=== PATIENT | female | born 1990 | race American Indian/Alaskan Native ===

== ENCOUNTER 2016-08-21 01:27 | Outpatient (CLI) | payer MEDICAID ==
[2016-08-21 02:08] VITALS: BP 123/76
--- NOTE | 2016-08-21 10:04 | Ultrasound Report ---
OB LIMITED History: well-being. Technique: Transabdominal ultrasound with Doppler interrogation. Gestation: Single Position: Cephalic Amniotic Fluid: Normal AGUEDA = 10.3 cm Placenta: Anterior Placental Grade: 1 Heart Rate: 158 BPM
--- NOTE | 2016-08-21 10:05 | Ultrasound Report ---
BIOPHYSICAL PROFILE: History: well-being. Technique: Transabdominal ultrasound with Doppler interrogation. 2 - breathing movements 2 - movements 2 - posture and tone 2 - Qualitative amniotic fluid volume 8 - TOTAL SCORE OF POSSIBLE 8 Heart Rate (bpm) 158
== END 2016-08-21 03:41 | disposition home or self-care (01) ==
LOC: TRG 01:27
PROVIDERS: ATTEND Obstetrics & Gynecology
DX: O47.1 False labor at or after 37 completed weeks of gestation (principal); Z3A.39 39 weeks gestation of pregnancy
CPT/HCPCS: 76815; 76819

== ENCOUNTER 2016-08-23 04:32 | Inpatient (IN) | payer MEDICAID ==
[2016-08-23] MEDS ORDERED: LACTATED RINGERS 1,000 ML ONE (05:12)
[2016-08-23 07:55] LABS: Basophils % (Auto) 0.8 % (0.0-1.8); Eosinophils % (Auto) 1.7 % (0.0-4.3); Hematocrit 32.6 % (30.3-42.9); Hemoglobin 10.8 gm/dl (10.1-14.3); Mean Corpuscular HGB Conc 33 % (30-34); Mean Corpuscular Hemoglobin 28 pg (28-32); Mean Corpuscular Volume 83 fl (79-97); Platelet Count 218 K/mm3 (140-440); Red Blood Count 3.91 M/mm3 (3.65-5.03); Red Cell Distribution Width 13.7 % (13.2-15.2); White Blood Count 10.8 K/mm3 (4.5-11.0)
[2016-08-23] MEDS ORDERED: POLYCILLIN/NS 2 GM/100 ML 100 ML IV ONE (08:30)
--- NOTE | 2016-08-23 08:36 | History and Physical Report ---
History of Present Illness Date of examination: 08/23/16 Date of admission: 08/23/16 08:25 Chief complaint: C/O contractions History of present illness: 25 y/o with care at [facility] since 11 weeks. GBS +, no medical problems. Presents in active labor. Past History Past Medical History: no pertinent history Past Surgical History: other (hernia repair) BILINGUAL PATIENT SUPPORT CASEWORKER History: chlamydia, gonorrhea Family/Genetic History: none - Obstetrical History Expected Date of Delivery: 08/26/16 Actual Gestation: 39 Week(s) 4 Day(s) : 4 Para: 2 Spontaneous Abortions: 1 Number of Living Children: 2 Medications and Allergies Allergies Allergy/AdvReac Type Severity Reaction Status Date / Time No Known Allergies Allergy Verified 08/21/16 02:05 Active Meds: Active Medications Lactated Ringer's (Lactated Ringers) 1,000 mls @ 125 mls/hr IV DIRECT GABRIEL Ampicillin Sodium (Polycillin/Ns 2 Gm/100 Ml) 100 mls @ 100 mls/hr IV ONCE ONE PRN Reason: Protocol Stop: 08/23/16 09:29 Ampicillin Sodium (Polycillin/Ns 1 Gm/50 Ml) 50 mls @ 100 mls/hr IV Q4H GABRIEL PRN Reason: Protocol Influenza Virus Vaccine Quadrival (Fluarix Quad 8615-6029(36 Mos+)) 60 mcg IM .ONCE ONE Stop: 08/24/16 12:01 Review of Systems All systems: negative - Vital Signs Vital signs: Vital Signs Temp Pulse Resp BP 98.2 F 84 20 130/74 08/23/16 04:40 08/23/16 04:40 08/23/16 04:40 08/23/16 04:40 Temp Pulse Resp BP Pulse Ox 98.2 F 86 20 118/71 97 08/23/16 04:40 08/23/16 07:20 08/23/16 04:40 08/23/16 07:20 08/23/16 05:52 - Physical Exam Breasts: Positive: deferred Cardiovascular: Regular rate Lungs: Positive: Clear to auscultation Abdomen: Positive: soft Vulva: both: normal Vagina: Positive: normal moisture Uterus: Positive: enlarged Adnexa: both: normal Anus/Rectum: Positive: normal perianal skin Deep Tendon Reflex Grade: Normal +2 - Obstetrical FHR: category 1 FHR comments: CAT I 145- 155 Cervical Dilatation: 4 (nurse exam) Cervical Effacement Percentage: 70 station: -1 Uterine Contraction Pattern: Regular Uterine Contraction Intensity: Moderate Results Result Diagrams: 08/23/16 07:40 Abnormal lab results 08/23/16 Range/Units 07:40 Menard % (Auto) 9.0 H (0.0-7.3) % Menard # 1.0 H (0.0-0.8) K/mm3 All other labs normal. Assessment and Plan A: 39. 4 weeks in active labor P: Expect Epidural
[2016-08-23] MEDS: LACTATED RINGERS 1,000 ML IV SCH ×2 (08:59→09:57)
[2016-08-23] MEDS ORDERED: LACTATED RINGERS 1,000 ML IV SCH (09:00)
[2016-08-23] MEDS ORDERED: SUBLIMAZE IV PRN (09:00)
[2016-08-23] MEDS ORDERED: ePHEDrine SULFATE IV PRN (10:00)
[2016-08-23] MEDS ORDERED: PITOCin/NS 30 UNIT/500ML 500 ML IV SCH (10:00)
[2016-08-23] MEDS ORDERED: BRETHINE SUB-Q PRN (10:00)
[2016-08-23] MEDS ORDERED: PITOCin/NS 20 UNIT/1000ML DRIP 1,000 ML IV SCH (10:00)
[2016-08-23] MEDS ORDERED: BRETHINE IVP PRN (10:00)
[2016-08-23] MEDS ORDERED: MINERAL OIL PO PRN (10:00)
--- NOTE | 2016-08-23 10:27 | Anesthesia Consultation ---
Anesthesia Consult and Med Hx Date of service: 08/23/16 - Airway Anesthetic Teeth Evaluation: Good ROM Head & Neck: Adequate Mental/Hyoid Distance: Adequate Mallampati Class: Class II Intubation Access Assessment: Probably Good - Pre-Operative Health Status ASA Pre-Surgery Classification: ASA2 Proposed Anesthetic Plan: Epidural - Pulmonary Hx Asthma: No COPD: No Hx Pneumonia: No - Cardiovascular System Hx Hypertension: No - Central Nervous System Hx Seizures: No Hx Psychiatric Problems: No - Endocrine Hx Renal Disease: No Hx End Stage Renal Disease: No Hx Hypothyroidism: No Hx Hyperthyroidism: No - Hematic Hx Anemia: No Hx Sickle Cell Disease: No - Other Systems Hx Alcohol Use: No
[2016-08-23] MEDS ORDERED: NARCAN 2 MG/2 ML IV PRN (10:28)
[2016-08-23] MEDS ORDERED: fentaNYL-BUPIV 2 MCG/ML-0.125% 100 ML EPIDURAL SCH (11:00)
[2016-08-23] MEDS: PITOCin/NS 30 UNIT/500ML 500 ML IV SCH ×3 (12:55→14:03)
[2016-08-23] MEDS: POLYCILLIN/NS 1 GM/50 ML 50 ML IV SCH ×2 (12:56→16:37)
--- NOTE | 2016-08-23 14:07 | Event Note ---
Date: 08/23/16 S: Feeling ok., epidural working O: VE /-1, arom clear fluid, CAT I tracing, Pit increased to 8mu A: Active labor with AROM P: Expect
--- NOTE | 2016-08-23 17:14 | Procedure Note ---
OB Delivery Note - Delivery Date of Delivery: 08/23/16 Surgeon: MICAELA ROY Estimated blood loss: 100cc - Vaginal Delivery position: OA Intrapartum events: none Delivery induction: none Delivery augmentation: rupture of membranes, pitocin Delivery monitor: external FHT, external uterine Route of delivery: Delivery placenta: spontaneous Delivery cord: 3 umbilical vessels Episiotomy: none Delivery laceration: other (bilateral labial laceration repaired 3-0 vicryl) Delivery repair: vicryl Anesthesia: epidural Delivery comments: of a viable male 7# 1.0 on 08/23/2016 @ 1856 over an intact perineum. Placenta delivered 3VCI. Apgars 8/9. Bilateral Labial lac noted and repaired with 3-0 vicryl. FF @ U-2 lochia small. - A at 1 minute: 8 at 5 minutes: 9 Infant Gender: Male (7# 1oz)
[2016-08-23] MEDS ORDERED: PHENERGAN PO PRN (17:15)
[2016-08-23] MEDS ORDERED: LANSINOH TP PRN (17:15)
[2016-08-23] MEDS ORDERED: BENADRYL PO PRN (17:15)
[2016-08-23] MEDS ORDERED: TYLENOL PO PRN (17:15)
[2016-08-23] MEDS ORDERED: SODIUM CHLORIDE FLUSH SYRINGE 10 ML IV SCH (18:00)
[2016-08-23] MEDS: MOTRIN PO SCH (20:35)
[2016-08-24] MEDS: MOTRIN PO SCH ×4 (00:19→18:40)
[2016-08-24 06:32] LABS: Hematocrit 34.2 % (30.3-42.9); Hemoglobin 10.9 gm/dl (10.1-14.3)
--- NOTE | 2016-08-24 09:49 | Progress Note ---
Assessment and Plan A: PPD#1 s/p Stable P: Routine PP care Discharge home am PP exam in 6 weeks Undecided on contraception Subjective - Subjective Date of service: 08/24/16 Principal diagnosis: Interval history: See delivery note Patient reports: appetite normal, voiding normally, pain well controlled, flatus , ambulating normally [place]: doing well, nursing well Objective - Vital Signs Latest vital signs: Vital Signs Temp Pulse Pulse Pulse Resp BP BP 08/24/16 08:00 98.1 F 64 18 123/66 08/24/16 00:25 98.5 F 69 18 115/54 08/23/16 20:00 99.6 F 74 18 124/66 08/23/16 19:31 85 125/68 08/23/16 19:15 76 116/56 08/23/16 19:01 86 118/51 08/23/16 18:30 85 85 18 111/61 111/61 08/23/16 18:15 86 79/54 08/23/16 18:00 83 83 18 120/63 120/63 08/23/16 17:45 74 74 18 115/64 115/64 08/23/16 17:30 72 72 18 117/57 117/57 08/23/16 17:15 98 H 98 H 18 121/59 121/59 08/23/16 17:12 83 08/23/16 17:09 84 120/62 08/23/16 17:07 87 08/23/16 17:00 99.4 F 86 86 18 120/61 120/61 08/23/16 16:47 101 H 130/80 08/23/16 16:46 100 H 08/23/16 16:41 92 H 08/23/16 16:36 91 H 08/23/16 16:31 74 08/23/16 16:30 94 H 130/75 08/23/16 16:26 97 H 08/23/16 16:21 81 08/23/16 16:16 77 121/73 08/23/16 16:11 75 08/23/16 16:06 79 08/23/16 16:01 78 124/74 08/23/16 15:56 75 08/23/16 15:51 75 08/23/16 15:46 74 08/23/16 15:45 74 122/75 08/23/16 15:41 74 08/23/16 15:36 74 08/23/16 15:32 72 121/75 08/23/16 15:31 76 08/23/16 15:26 74 08/23/16 15:21 79 08/23/16 15:16 74 120/77 08/23/16 15:11 74 08/23/16 15:06 75 08/23/16 15:01 75 08/23/16 15:00 76 120/78 08/23/16 14:56 74 08/23/16 14:51 74 08/23/16 14:47 76 119/76 08/23/16 14:46 74 08/23/16 14:41 76 08/23/16 14:36 77 08/23/16 14:31 75 122/73 08/23/16 14:26 76 08/23/16 14:21 85 08/23/16 14:16 78 08/23/16 14:15 76 121/78 08/23/16 14:11 78 08/23/16 14:06 79 08/23/16 14:01 87 122/76 08/23/16 13:56 93 H 08/23/16 13:51 77 08/23/16 13:46 76 119/70 08/23/16 13:41 76 08/23/16 13:36 78 08/23/16 13:31 81 08/23/16 13:30 77 114/69 08/23/16 13:26 76 08/23/16 13:21 92 H 08/23/16 13:16 92 H 123/70 08/23/16 13:11 85 08/23/16 13:06 78 08/23/16 13:01 77 08/23/16 13:00 77 114/67 08/23/16 12:56 89 08/23/16 12:51 76 08/23/16 12:49 75 116/71 08/23/16 12:46 74 08/23/16 12:41 81 08/23/16 12:36 85 08/23/16 12:34 75 118/68 08/23/16 12:31 75 08/23/16 12:26 73 08/23/16 12:21 73 08/23/16 12:19 75 119/67 08/23/16 12:16 79 08/23/16 12:11 83 08/23/16 12:06 80 08/23/16 12:04 72 110/63 08/23/16 12:01 73 08/23/16 11:56 71 08/23/16 11:51 72 08/23/16 11:46 73 08/23/16 11:44 83 114/68 08/23/16 11:41 74 08/23/16 11:40 71 18 111/64 08/23/16 11:36 70 08/23/16 11:34 76 110/62 08/23/16 11:31 77 08/23/16 11:29 70 113/65 08/23/16 11:26 75 08/23/16 11:24 71 113/65 08/23/16 11:21 71 113/65 08/23/16 11:16 69 113/66 08/23/16 11:11 69 08/23/16 11:09 70 114/63 08/23/16 11:06 78 08/23/16 11:04 78 115/66 08/23/16 11:01 84 08/23/16 10:59 70 111/59 08/23/16 10:57 77 112/58 08/23/16 10:56 75 08/23/16 10:55 72 106/59 08/23/16 10:53 75 108/58 08/23/16 10:51 74 108/60 08/23/16 10:49 70 112/66 08/23/16 10:47 71 118/68 08/23/16 10:46 76 08/23/16 10:41 73 08/23/16 10:38 67 08/23/16 10:36 97 H 08/23/16 10:34 90 114/68 08/23/16 10:31 96 H 08/23/16 10:27 98.5 F 72 18 115/67 08/23/16 10:26 69 115/67 08/23/16 10:21 69 08/23/16 10:16 69 08/23/16 10:11 93 H 08/23/16 10:06 70 08/23/16 10:01 69 08/23/16 09:59 74 08/23/16 09:56 80 08/23/16 09:51 80 Pulse Ox 08/24/16 08:00 08/24/16 00:25 08/23/16 20:00 08/23/16 19:31 08/23/16 19:15 08/23/16 19:01 08/23/16 18:30 08/23/16 18:15 08/23/16 18:00 08/23/16 17:45 08/23/16 17:30 08/23/16 17:15 08/23/16 17:12 99 08/23/16 17:09 08/23/16 17:07 100 08/23/16 17:00 08/23/16 16:47 08/23/16 16:46 100 17 16:41 100 17 16:36 100 17 16:31 100 17 16:30 08/23/16 16:26 100 08/23/16 16:21 100 08/23/16 16:16 100 17 16:11 100 08/23/16 16:06 100 17 16:01 99 17 15:56 100 17 15:51 99 17 15:46 100 17 15:45 17 15:41 100 17 15:36 100 17 15:32 08/23/16 15:31 100 17 15:26 99 17 15:21 100 17 15:16 100 17 15:11 100 08/23/16 15:06 100 17 15:01 100 08/23/16 15:00 08/23/16 14:56 100 08/23/16 14:51 99 08/23/16 14:47 08/23/16 14:46 100 08/23/16 14:41 99 08/23/16 14:36 100 08/23/16 14:31 99 08/23/16 14:26 100 08/23/16 14:21 100 08/23/16 14:16 99 08/23/16 14:15 08/23/16 14:11 100 08/23/16 14:06 100 08/23/16 14:01 100 08/23/16 13:56 100 08/23/16 13:51 100 08/23/16 13:46 100 08/23/16 13:41 100 08/23/16 13:36 100 08/23/16 13:31 100 08/23/16 13:30 08/23/16 13:26 100 08/23/16 13:21 100 08/23/16 13:16 99 08/23/16 13:11 100 08/23/16 13:06 100 08/23/16 13:01 100 08/23/16 13:00 08/23/16 12:56 100 08/23/16 12:51 100 08/23/16 12:49 08/23/16 12:46 100 08/23/16 12:41 100 08/23/16 12:36 100 08/23/16 12:34 08/23/16 12:31 100 08/23/16 12:26 100 08/23/16 12:21 99 08/23/16 12:19 08/23/16 12:16 98 08/23/16 12:11 98 08/23/16 12:06 98 08/23/16 12:04 08/23/16 12:01 99 08/23/16 11:56 98 08/23/16 11:51 100 08/23/16 11:46 99 08/23/16 11:44 08/23/16 11:41 100 08/23/16 11:40 08/23/16 11:36 99 08/23/16 11:34 08/23/16 11:31 99 08/23/16 11:29 08/23/16 11:26 99 08/23/16 11:24 08/23/16 11:21 100 08/23/16 11:16 100 08/23/16 11:11 99 08/23/16 11:09 08/23/16 11:06 100 08/23/16 11:04 08/23/16 11:01 96 08/23/16 10:59 08/23/16 10:57 08/23/16 10:56 98 08/23/16 10:55 08/23/16 10:53 08/23/16 10:51 99 08/23/16 10:49 08/23/16 10:47 08/23/16 10:46 98 08/23/16 10:41 100 08/23/16 10:38 86 08/23/16 10:36 100 08/23/16 10:34 08/23/16 10:31 99 08/23/16 10:27 100 08/23/16 10:26 100 08/23/16 10:21 99 08/23/16 10:16 97 08/23/16 10:11 97 08/23/16 10:06 96 08/23/16 10:01 96 08/23/16 09:59 92 08/23/16 09:56 98 08/23/16 09:51 98 Intake and Output 08/23/16 08/24/16 08/24/16 22:59 06:59 14:59 Intake Total 1100 Output Total 500 Balance 1100 -500 Intake: IV 1100 Lactated Ringers 1,000 ml 600 @ 125 mls/hr IV DIRECT [facility] Rx#:[id number] PITOCin/NS 30 UNIT/500ML 500 500 ML @ 1 MILLIUNITS/MIN 1 mls/hr IV TITR GABRIEL Rx# :[id number] Output: Urine 500 Void 500 Other: Total, Output Amount 500 Estimated Blood Loss 100 - Exam Breasts: Present: normal Lungs: Present: Normal air movement Vulva: both: normal (scant rubra lochia, no clots), laceration/episiotomy (well approximated) Uterus: Present: firm, fundal height below umbilicus (-1) Deep Tendon Reflex Grade: Normal +2
--- NOTE | 2016-08-24 09:51 | Discharge Summary ---
Providers - Providers Date of Admission: 08/23/16 08:25 Date of discharge: 08/25/16 Attending physician: TRUNG RIVERS MD Primary care physician: TRUNG RIVERS MD Hospitalization Reason for admission: active labor, IUP at term Delivery: Procedure details: see delivery note Episiotomy: none Laceration: other (R labial) Other procedures: none complications: none Discharge diagnosis: IUP at term delivered baby: male Condition at discharge: Good Disposition: DISCHARGED TO HOME OR SELFCARE Plan - Provider Discharge Summary Activity: routine, no sex for 6 weeks, no heavy lifting 4 weeks, no strenuous exercise Diet: routine Instructions: routine Additional instructions: [] Smoking cessation referral if applicable(refer to patient education folder for contact #) [] Refer to [facility] Booklet Call your doctor immediately for: * Fever > 100.5 * Heavy vaginal bleeding ( >1 pad per hour) * Severe persistent headache * Shortness of breath * Reddened, hot, painful area to leg or breast * Drainage or odor from incision. * Keep incision clean and dry at all times and follow doctor's instructions regarding bathing/showering - Follow up plan Follow up: ROYER NICHOLE CNM [Advanced Practice Nurse] - 6 Weeks
--- NOTE | 2016-08-24 10:09 | Progress Note ---
Subjective Date of service: 08/24/16 Principal diagnosis: Interval history: 1st day after normal vaginal delivery. Patient is in the bed, relatively comfortable. Pain is mostly controlled with pain meds. Epidural catheter has been removed earlier. Ambulated normally. No residual neurological deficit. No anesthesia complications Objective - Constitutional Vitals: Vital Signs - 12hr 08/24/16 08/24/16 00:25 08:00 Temperature 98.5 F 98.1 F Pulse Rate [ 69 64 From Monitor] Respiratory 18 18 Rate Blood Pressure 115/54 123/66 [Right Arm] - Labs CBC & Chem 7: 08/24/16 05:58
[2016-08-24] MEDS ORDERED: FLUARIX QUAD 2016-2017(36 MOS+) IM ONE (12:00)
[2016-08-24] MEDS: NORCO 5/325 PO PRN (20:32)
[2016-08-25] MEDS: MOTRIN PO SCH ×2 (00:19→05:44)
[2016-08-25] MEDS: NORCO 5/325 PO PRN (02:32)
[2016-08-25] MEDS ORDERED: BOOSTRIX IM ONE (06:00)
[2016-08-25 11:14] VITALS: BP 115/65
[2016-08-25] MEDS ORDERED: FLUARIX QUAD 2016-2017(36 MOS+) IM ONE (11:30)
== END 2016-08-25 12:15 | disposition home or self-care (01) | DRG 775 ==
LOC: TRG 04:32 → LD 08:25 → OB 19:51
PROVIDERS: ADMIT Obstetrics & Gynecology; ATTEND Obstetrics & Gynecology
PROC: 00HU33Z Insertion of Infusion Device into Spinal Canal, Percutaneous Approach (ICD-10-PCS; principal; 2016-08-23)
PROC: 10E0XZZ Delivery of Products of Conception, External Approach (ICD-10-PCS; principal; 2016-08-23)
PROC: 3E0S3CZ (ICD-10-PCS; principal; 2016-08-23)
PROC: 0UQMXZZ Repair Vulva, External Approach (ICD-10-PCS; principal; 2016-08-23)
PROC: 10907ZC Drainage of Amniotic Fluid, Therapeutic from Products of Conception, Via Natural or Artificial Opening (ICD-10-PCS; principal; 2016-08-23)
DX: O70.0 First degree perineal laceration during delivery (principal); Z3A.39 39 weeks gestation of pregnancy; Z37.0 Single live birth
CPT/HCPCS: 36415; 85014; 85018; 85025; 86850; 86900; 86901; 90471; 90472; 90686; 90715; 99211; G0463; J0290; J2590; J3010; J7120